=== PATIENT | male | born 1985 | race Caucasian/White ===

== ENCOUNTER 2016-08-03 15:40 | Emergency (ER) | payer BC ==
[~2016-08-03] VITALS: Ht 177.8 cm; Wt 105.1 kg
[~2016-08-03 15:40] MED LIST: FLEXERIL10 MG PO; MOTRIN800 MG PO
[2016-08-03 16:24] LABS: HEMATOCRIT 44.6 % (38.0-50.0); MCH 28.1 PG (29.0-34.0); MCV 85.1 FL (86-99); MEAN PLAT.VOLUME 9.3 uM^3 (9.0-12.4); PLATELET COUNT 238 K/uL (156-360); RBC DIS.WIDTH-CV 12.4 % (11.8-14.6); RBC DIS.WIDTH-SD 38.5 % (39-53); RED BLOOD COUNT 5.24 M/uL (4.00-5.50); WHITE BLOOD COUNT 4.8 K/uL (4.1-10.2)
[2016-08-03 16:32] LABS: CHLORIDE 103 mEq/L (99-109); POTASSIUM 3.7 mEq/L (3.7-5.4); SODIUM 140 mEq/L (136-147)
[2016-08-03 16:35] LABS: GLUCOSE 81 mg/dL (70-99)
[2016-08-03 16:36] LABS: ANION GAP 12 MEQ/L (2-14); TOTAL BILIRUBIN 0.4 mg/dL (0.0-1.0)
[2016-08-03 16:38] LABS: ALKALINE PHOSPHATASE 57 IU/L (3-129); GFR ESTIMATE (CALCULATED) > 59 mL/min/
[2016-08-03 16:38] LABS: BILIRUBIN NEGATIVE; BLOOD NEGATIVE; COLOR YELLOW ((YELLOW)); GLUCOSE (STRIP) NEGATIVE; KETONES NEGATIVE; LEUKOCYTES NEGATIVE; NITRITE NEGATIVE; PROTEIN (STRIP) 30; SPECIFIC GRAVITY 1.025 (1.000-1.030); UROBILINOGEN 0.2 MG/DL (0.2-1.0)
[2016-08-03 16:39] LABS: UREA NITROGEN (BUN) 12 mg/dL (9-23)
[2016-08-03 16:42] LABS: ADD MIUA? NO; UCUL ADDED? NO
[2016-08-03 16:42] LABS: LIPASE 176 U/L (1.0-51.0)
[2016-08-03 17:12] LABS: AMYLASE 92 IU/L (1-118)
[2016-08-03 17:20] LABS: DIRECT BILIRUBIN 0.1 mg/dL (0.0-0.3)
[2016-08-03] MEDS ORDERED: TRAMADOL HCL50 MG PO (19:26)
[2016-08-03] MEDS ORDERED: ZOFRAN4 MG PO (19:26)
[2016-08-03 19:42] VITALS: BP 120/74
== END 2016-08-03 19:43 | disposition home or self-care (01) ==
LOC: EME 15:40
DX: R10.11 Right upper quadrant pain (principal); R11.2 Nausea with vomiting, unspecified; R19.7 Diarrhea, unspecified
CPT/HCPCS: 76705; 80053; 81003; 82150; 82248; 83690; 85027; 99281; 99284; J1885